=== PATIENT | female | born 1985 | race Caucasian/White ===

== ENCOUNTER 2022-09-30 14:47 | Outpatient (CLI) | payer BC, SELFPAY ==
[2022-09-30 17:31] LABS: Chloride* 101 mmol/L (96-114); Potassium* 4.3 mmol/L (3.6-5.1); Sodium* 138 mmol/L (135-149)
[2022-09-30 17:34] LABS: Blood Urea Nitrogen* 17 mg/dL (5-24); Carbon Dioxide* 28 mmol/L (20-32); Creatinine* 0.8 mg/dL (0.5-1.5); Estimated Glomerular Filt Rate 97 ml/min; Glucose* 83 mg/dL (60-115)
[2022-09-30 17:35] LABS: Calcium* 9.4 mg/dL (8.4-10.6)
== END 2022-09-30 14:48 | disposition home or self-care (01) ==
LOC: NFLDREF 14:49
PROVIDERS: PCP Family Medicine; Visit Provider Family Medicine
DX: Z01.818 Encounter for other preprocedural examination (principal)
CPT/HCPCS: 80048